=== PATIENT | female | born 1980 | race Caucasian/White ===

== ENCOUNTER 2019-03-20 19:30 | Emergency (ER) ==
--- NOTE | 2019-03-20 19:43 | ED.PDOC ---
General ED Provider: Dr. OSIEL UNDERWOOD Chief Complaint: Toe Pain/Injury Stated Complaint: 39 y old female ,not aware of any medical issues other than a possibility of MS.Taking medss for peripheral neuropathy.No bladder or ambulation problems.% days ago began exoeriencing tingling and sometimes eithetr pain or numbness in some toes fo both feet,Presents with HH Dopper showin +2 dorsalizs pedis and +# posterior tibial bilaterally,Capillary refil present,slugish though in some toes,Some have tips with a blue tinge to them. Time Seen by Physician: 19:45 Exam Limitations: No limitations Primary Care Provider: MAGI CHOE Nursing and Triage Documentation Reviewed and Agree: Yes Does patient meet sepsis criteria?: No System Inflammatory Response Syndrome: Not Applicable Sepsis Protocol: For patient's 13 years and over: Temp is 96.8 and below OR 101 and greater Pulse >90 BPM Resp >20/minute Acutely Altered Mental Status Are patient's symptoms suggestive of a new infection, such as: -Pneumonia -Skin, Soft Tissue -Endocarditis -UTI -Bone, Joint Infection -Implantable Device -Acute Abdominal Infection -Wound Infection -Meningitis -Blood Stream Catheter Infection -Unknown Musculoskeletal Complaint Exam - Ankle/Foot Complaint/Exam Location of Injury: Reports: Left Mechanism of Injury: Reports: No known trauma Symptoms Are: Reports: Still present Onset of Pain: Reports: Minutes Initial Severity: Mild Current Severity: Mild Location: Reports: Discrete Character: Reports: Dull Alleviating: Reports: None Aggravating: Reports: None Able to Bear Weight: Yes Associated Signs and Symptoms: Reports: Tingling Gout Risk Factors: Reports: None Achilles Tendon Abnormality: No Differential Diagnosis: Sprain, Strain Review of Systems - Review Of Systems Constitutional: Reports: No symptoms Eyes: Reports: No symptoms Ears, Nose, Mouth, Throat: Reports: No symptoms Respiratory: Reports: No symptoms Cardiac: Reports: No symptoms GI: Reports: No symptoms : Reports: No symptoms Musculoskeletal: Reports: No symptoms Skin: Reports: No symptoms Neurological: Reports: No symptoms Endocrine: Reports: No symptoms Hematologic/Lymphatic: Reports: No symptoms All Other Systems: Reviewed and Negative Past Medical History - Past Medical History Endocrine: Reports: DM 1, Unknown Cardiovascular: Reports: Unknown Respiratory: Reports: None Hematological: Reports: None Gastrointestinal: Reports: None Genitourinary: Reports: None Neuro/Psych: Reports: None Musculoskeletal: Reports: None Cancer: Reports: None - Surgical History General Surgical History: Reports: None - Family History Family History: Reports: None - Social History Smoking Status: Current every day smoker Hx Substance Use: No Alcohol Screening: Occasionally - Immunizations Tetanus Shot up to Date: Yes Physical Exam - Physical Exam Appearance: Well-appearing Ill-appearing: None Pain Distress: None Eyes: CONCEPCION, EOMI, Conjunctiva clear ENT: Ears normal, Nose normal, Oropharynx normal Neck: Supple Respiratory: Airway patent, Breath sounds clear, Breath sounds equal Cardiovascular: RRR, Pulses normal GI/: Soft, Nontender, No masses, Bowel sounds normal, No Organomegaly Musculoskeletal: Normal strength, ROM intact, No edema, No calf tenderness Skin: Warm, Dry, Normal color Neurological: Sensation intact, Motor intact, Reflexes intact, Cranial nerves intact, Alert Psychiatric: Affect appropriate Re-Evaluation - Re-Evaluation Time of Re-Evaluation: 21:52 (Normal EKG /all axix,rhythm.ORS/) Status: Improved Vital Signs Stable: Yes Pain Level: mottling of of same asingle toe III on either sie improves with massaage Appearance: NAD Lungs: Clear Skin: Warm and Dry Neuro: Alert and Oriented X3 CV: RRR Physician Notification - Case Discussed Physician Notified: Accepted by [facility] hospitalist for ER U-sound r/o arterial blockage LE bogdan Time of Notification: 22:23 Critical Care Note - Critical Care Note Total Time (mins): 0 Course - Course Hematology/Chemistry: 03/20/19 20:30 03/20/19 20:30 Orders, Labs, Meds: Lab Review 03/20/19 03/20/19 03/20/19 20:24 20:30 20:30 WBC 13.16 H RBC 4.22 Hgb 12.9 Hct 39.2 MCV 92.9 MCH 30.6 MCHC 32.9 RDW Coeff of Shravan 14.7 Plt Count 228 Immature Gran % (Auto) 0.5 Neut % (Auto) 53.8 Lymph % (Auto) 35.6 [place] % (Auto) 6.3 Eos % (Auto) 3.3 Baso % (Auto) 0.5 Immature Gran # (Auto) 0.1 Neut # (Auto) 7.1 H Lymph # (Auto) 4.7 H [place] # (Auto) 0.8 Eos # (Auto) 0.4 Baso # (Auto) 0.1 ESR PT INR APTT D-Dimer (Manual) Sodium 139.1 Potassium 3.76 Chloride 106.5 Carbon Dioxide 23.2 Anion Gap 13.16 BUN 13.7 Creatinine 1.27 Estimated GFR (MDRD) 47.00 BUN/Creatinine Ratio 10.78 Glucose 108.7 H Calcium 8.92 Total Bilirubin 0.20 AST 23.1 ALT 18.9 Alkaline Phosphatase 84.7 Total Protein 6.97 Albumin 3.99 Globulin 2.98 Albumin/Globulin Ratio 1.33 Urine Color Yellow Urine Clarity Clear Urine pH 7.0 Ur Specific [place] 1.015 Urine Protein Negative Urine Glucose (UA) Negative Urine Ketones Negative Urine Blood Negative Urine Nitrite Negative Urine Bilirubin Negative Urine Urobilinogen 0.2 Ur Leukocyte Esterase Negative 03/20/19 03/20/19 03/20/19 20:30 20:30 20:30 WBC RBC Hgb Hct MCV MCH MCHC RDW Coeff of Shravan Plt Count Immature Gran % (Auto) Neut % (Auto) Lymph % (Auto) [place] % (Auto) Eos % (Auto) Baso % (Auto) Immature Gran # (Auto) Neut # (Auto) Lymph # (Auto) [place] # (Auto) Eos # (Auto) Baso # (Auto) ESR 7 PT 9.0 L INR 0.90 APTT 22.1 L D-Dimer (Manual) 521.51 Sodium Potassium Chloride Carbon Dioxide Anion Gap BUN Creatinine Estimated GFR (MDRD) BUN/Creatinine Ratio Glucose Calcium Total Bilirubin AST ALT Alkaline Phosphatase Total Protein Albumin Globulin Albumin/Globulin Ratio Urine Color Urine Clarity Urine pH Ur Specific [place] Urine Protein Urine Glucose (UA) Urine Ketones Urine Blood Urine Nitrite Urine Bilirubin Urine Urobilinogen Ur Leukocyte Esterase Orders Category Date Time Status EKG-(ED ONLY) Stat CARDIO 03/20/19 20:22 Completed CBC W/ AUTO DIFF Stat LAB 03/20/19 20:30 Completed COMPREHENSIVE METABOLIC PANEL Stat LAB 03/20/19 20:30 Completed CRP [C-REACTIVE PROTEIN] Stat LAB 03/20/19 20:30 Received D-DIMER Stat LAB 03/20/19 20:30 Completed ESR Stat LAB 03/20/19 20:30 Completed PARTIAL THROMBOPLASTIN TIME Stat LAB 03/20/19 20:30 Completed PT WITH INR Stat LAB 03/20/19 20:30 Completed URINALYSIS C & S IF INDICATED Stat LAB 03/20/19 20:24 Completed CHEST, 2 VIEWS PA & LAT Stat RADS 03/20/19 20:[address] LUMBAR SPINE W/O CONTRAST Stat RADS 03/20/19 20:23 Completed Vital Signs: Temp Pulse Resp BP Pulse Ox 03/20/19 20:51 158/101 H 03/20/19 20:49 132/86 03/20/19 19:31 98.9 F 94 H 18 143/89 H 97 Departure - Departure Time of Disposition: 22:23 Disposition: TSF SHORT-TRM HOSP Discharge Problem: Raynaud phenomenon Instructions: Peripheral Neuropathy (ED) Condition: Good Pt referred to PMD for follow-up: Yes IPMP verified?: No Allergies/Adverse Reactions: Allergies ketorolac [From Toradol] Adverse Reaction (Verified 03/20/19 19:49) WATER RETENSION GAINED 15 POUNDS IN 2 DAYS nifedipine [From Procardia] Adverse Reaction (Verified 03/20/19 19:49) HYPOTENSION TOOK WHILE AND CAUSED HYPOTENSION sulfamethoxazole [From Bactrim] Adverse Reaction (Verified 03/20/19 19:49) Hives trimethoprim [From Bactrim] Adverse Reaction (Verified 03/20/19 19:49) Hives Home Medications: Ambulatory Orders Buspirone HCl [Buspar] 7.5 mg PO BID 03/20/19 Cetirizine HCl [Zyrtec] 10 mg PO DAILY 03/20/19 Escitalopram Oxalate [Lexapro] 20 mg PO DAILY 03/20/19 Disposition Discussed With: Patient, Family
[2019-03-20 19:46] VITALS: TEMP 98.9; BMI 35.6
[2019-03-20 20:52] VITALS: BP 158/101
--- NOTE | 2019-03-20 20:53 | DI ---
EXAM: Chest two views HISTORY: Peripheral vascular symptoms FINDINGS: Normal cardiac and mediastinal contours. Normal pulmonary vasculature. Lungs are clear. No significant abnormality of the bony thorax. IMPRESSION: Chest radiograph within normal limits.
--- NOTE | 2019-03-20 20:59 | CT ---
EXAM: CT of the lumbar spine. HISTORY: Peripheral sympathetic vasculopathy. COMPARISON: None. TECHNIQUE: Contiguous axial images at 3 mm intervals were obtained through the lumbar spine. Sagitt al and coronal reformats were reviewed. No contrast. FINDINGS: There are 5 lumbar type vertebral bodies. There is curvature spine to the left measuring 8 degrees. The vertebral heights are well maintained. There are no acute or healing fractures. Bone mineralization is normal. There are no lytic or blastic lesions. The soft tissues are unremarkable . There is no retroperitoneal fluid collection. The aorta is normal. There is no spinal canal or neural foraminal narrowing. IMPRESSION: 1. No acute abnormalities. 2. Mild scoliosis of the spine to the left measuring 8 degrees. 3. No spinal canal or neural foramen narrowing.
== END 2019-03-20 22:55 | disposition short-term general hospital (02) ==
LOC: ED 19:30
DX: I73.00 Raynaud's syndrome without gangrene (principal); E10.9 Type 1 diabetes mellitus without complications; F17.210 Nicotine dependence, cigarettes, uncomplicated
CPT/HCPCS: 36415; 80053; 81001; 85025; 85379; 85610; 85651; 85730; 86140; 93005; 93010; 99283